=== PATIENT | female | born 1940 | race Two or more races ===

== ENCOUNTER 2017-01-05 18:14 | Emergency (ER) | payer MEDICARE, MEDICAID ==
[~2017-01-05] VITALS: Ht 157.5 cm; Wt 68.0 kg
[~2017-01-05 18:14] MED LIST: AMLO-25 PO; ASCO500T11 PO; ASPI81TA27 PO; FERR324T PO; FLUT27.52; LEVEMIR SC; LEVO-28 PO; LEVO50TA66 PO; LORA-622 PO; MELO-86 PO; METF-370 PO; Pantoprazole Sodium Sesquihydr PO
[2017-01-05 19:40] LABS: Basophils # (auto) 0.1 uL; Basophils % (auto) 0.5 % (0.0-2.0); CONDITION AutoValidated; DEFINITIVE SEE PRINTOUT; Eosinophils # (auto) 0.1 uL; Eosinophils % (auto) 1.3 % (0.0-7.0); Hematocrit 32.8 % (36.0-46.0); Hemoglobin 10.6 g/dL (12.2-16.2); Lymphocytes # (auto) 3.6 uL; Lymphocytes % (auto) 32.8 % (10.0-50.0); Mean Corpuscular Hemoglobin 23.7 pg (28.0-32.0); Mean Corpuscular Hgb Conc. 32.3 g/dL (32.0-36.0); Mean Corpuscular Volume 73.4 fL (80.0-100.0); Monocytes # (auto) 0.6 uL; Monocytes % (auto) 5.5 % (0.0-12.0); Neutrophils # (auto) 6.6 uL; Neutrophils % (auto) 59.9 % (37.0-80.0); Platelet Count (auto) 250 10^3/uL (140-450); Red Cell Distribution Width 15.4 % (11.6-16.0)
[2017-01-05 19:55] LABS: Urine RBC None Seen /hpf (0 - 4)
[2017-01-05 20:01] LABS: Albumin 3.7 g/dL (3.4-5.0); Anion Gap 8 (5-15); Aspartate Aminotransferase 23 U/L (15-37); BUN/Creatinine Ratio 17.5; Blood Urea Nitrogen 20 mg/dL (7-18); Calcium 8.6 mg/dL (8.5-10.1); Carbon Dioxide 26 mmol/L (21-32); Chloride 103 mmol/L (98-107); GFR African American 59 mL/min; GFR Non-African American 49 mL/min; Glucose 209 mg/dL (74-106); Magnesium 2.2 mg/dL (1.6-2.6); Potassium 4.7 mmol/L (3.5-5.1); Sodium 137 mmol/L (136-145)
[2017-01-05 20:05] LABS: Alkaline Phosphatase 70 U/L (45-117); Bilirubin, Total 0.4 mg/dL (0.2-1.0); Total Protein 7.8 g/dL (6.4-8.2)
[2017-01-05 20:36] LABS: Urine Bilirubin Negative (Negative); Urine Blood Negative /uL (Negative); Urine Color Yellow (Yellow); Urine Glucose TRACE mg/dL (Normal); Urine Ketone Negative (Negative); Urine Mucus FEW (None Seen); Urine Nitrite Negative (Negative); Urine Squamous Epithelial Cell FEW /hpf (<5); Urine Urobilinogen Normal (Negative)
[2017-01-06] MEDS ORDERED: SODIUM CHLORIDE 0.9% 1,000 ML IV ONE (01:15)
[2017-01-06 02:50] VITALS: BP 131/79
== END 2017-01-06 03:03 | disposition home or self-care (01) ==
LOC: ER 18:19
DX: K52.9 Noninfective gastroenteritis and colitis, unspecified (principal); E11.65 Type 2 diabetes mellitus with hyperglycemia; E86.0 Dehydration; K57.90 Diverticulosis of intestine, part unspecified, without perforation or abscess without bleeding; E11.22 Type 2 diabetes mellitus with diabetic chronic kidney disease; N18.9 Chronic kidney disease, unspecified; I12.9 Hypertensive chronic kidney disease with stage 1 through stage 4 chronic kidney disease, or unspecified chronic kidney disease; Z88.0 Allergy status to penicillin; Z79.82 Long term (current) use of aspirin; Z79.899 Other long term (current) drug therapy; Z79.4 Long term (current) use of insulin; Z98.51 Tubal ligation status; Z90.49 Acquired absence of other specified parts of digestive tract
CPT/HCPCS: 36415; 74176; 80053; 81001; 82962; 83735; 84484; 85025; 93005; 96360; 96361; 99285; J7030

== ENCOUNTER 2017-01-11 13:35 | Emergency (ER) | payer MEDICARE, MEDICAID ==
[~2017-01-11] VITALS: Ht 157.5 cm; Wt 68.0 kg
[2017-01-11 14:18] VITALS: BP 144/65
== END 2017-01-11 15:38 | disposition home or self-care (01) ==
LOC: ER 13:42
DX: H00.036 Abscess of eyelid left eye, unspecified eyelid (principal); E11.22 Type 2 diabetes mellitus with diabetic chronic kidney disease; I12.9 Hypertensive chronic kidney disease with stage 1 through stage 4 chronic kidney disease, or unspecified chronic kidney disease; N18.9 Chronic kidney disease, unspecified; Z88.0 Allergy status to penicillin; Z79.82 Long term (current) use of aspirin; Z79.4 Long term (current) use of insulin; Z98.51 Tubal ligation status; Z90.710 Acquired absence of both cervix and uterus; Z79.899 Other long term (current) drug therapy
CPT/HCPCS: 70486

== ENCOUNTER 2017-02-25 18:34 | Emergency (ER) | payer MEDICARE, MEDICAID ==
[~2017-02-25] VITALS: Ht 157.5 cm; Wt 68.0 kg
[2017-02-25 18:44] VITALS: BP 173/57
[2017-02-25] MEDS ORDERED: SULFACETAMIDE SOD 10% OPTH(EYE) SOL 15ML RIGHTEYE ONE (23:45)
[2017-02-25] MEDS ORDERED: traMADol HCL 50 MG TAB PO ONE (23:45)
== END 2017-02-25 23:51 | disposition home or self-care (01) ==
LOC: ER 18:35
DX: H00.032 Abscess of right lower eyelid (principal); J31.0 Chronic rhinitis; E11.22 Type 2 diabetes mellitus with diabetic chronic kidney disease; I12.9 Hypertensive chronic kidney disease with stage 1 through stage 4 chronic kidney disease, or unspecified chronic kidney disease; N18.9 Chronic kidney disease, unspecified; Z88.0 Allergy status to penicillin; Z79.899 Other long term (current) drug therapy; Z79.4 Long term (current) use of insulin; Z79.82 Long term (current) use of aspirin; Z98.51 Tubal ligation status; Z90.49 Acquired absence of other specified parts of digestive tract
CPT/HCPCS: 70480

== ENCOUNTER 2018-08-26 00:04 | Inpatient (IN) | payer MEDICARE, MEDICAID | END 2018-08-28 18:06 | disposition home or self-care (01) | LOC: ER 00:04 → OVERFLOW 09:46 → WEST WING 10:50 | PROC: 0DJD8ZZ Inspection of Lower Intestinal Tract, Via Natural or Artificial Opening Endoscopic (ICD-10-PCS; principal; 2018-08-27 09:08) | DX: K57.30 Diverticulosis of large intestine without perforation or abscess without bleeding (principal); N17.0 Acute kidney failure with tubular necrosis; K92.1 Melena; N39.0 Urinary tract infection, site not specified; K65.4 Sclerosing mesenteritis; K74.60 Unspecified cirrhosis of liver; E11.65 Type 2 diabetes mellitus with hyperglycemia; D64.9 Anemia, unspecified; I10 Essential (primary) hypertension; E03.9 Hypothyroidism, unspecified; E11.21 Type 2 diabetes mellitus with diabetic nephropathy; Z79.4 Long term (current) use of insulin; E11.8 Type 2 diabetes mellitus with unspecified complications ==